=== PATIENT | female | born 1965 | race Caucasian/White ===

== ENCOUNTER → 2019-12-15 | Day surgery (SDC) | payer BC ==
[2019-12-15 07:33] VITALS: PULSE 84
--- NOTE | 2019-12-15 08:03 | P.GSHP ---
History of Present Illness H&P Date: 12/15/19 Chief Complaint: Abnormal right breast mammogram Belinda is a 54-year-old white female seen in consultation for Dr. Talavera and Dr. Hsu regarding the radiographic abnormality in the right breast. A routine screening mammogram performed on revealed indeterminate calcifications in the inferior posterior aspect of the right breast. The patient does not feel any lumps masses or nodules in either breast. She is not complaining of any nipple discharge for which she is concerned. She has not had any recent trauma or infection in the breast. caffiene: Several cans of diet Coke per day Nicotine: She does not smoke and is not exposed to secondhand smoke Theophylline: Minimal Family History: father: skin cancer, and prostate cancer patient: melanoma, right cheek, followed at [facility] Hormonal history: Menarche:16 G0 menopause: hysterectomy in mid 40S for bleeding, did not remove ovaries BCP: 12 years hormones: none Surgical history: 1. Hysterectomy 2. Bilateral knees torn cartilage 3. Tonsillectomy 4. Right cheek melanoma Medical history: diabetic HTN high cholesterol Overactive sweat glands Social history: Smoke: Negative Alcohol: Negative Drugs: Negative - Constitutional Constitutional: Reports sweats - EENT Comment: wears glasses Ears: bilateral: decreased hearing, tinnitus Ears, nose, mouth and throat: Denies headache, Denies sore throat - Breasts Breasts: bilateral: as per HPI - Cardiovascular Cardiovascular: Denies chest pain, Denies shortness of breath - Respiratory Respiratory: Denies cough, Denies 7 - Gastrointestinal Gastrointestinal: Denies abdominal pain, Denies diarrhea, Denies nausea, Denies vomiting - Genitourinary (Female) Genitourinary: Denies dysuria, Denies hematuria - Menstruation Menstruation: Reports post hysterectomy - Musculoskeletal Musculoskeletal: Denies myalgias - Integumentary Comment: melanoma right cheek - Neurological Neurological: Denies numbness, Denies weakness - Psychiatric Psychiatric: Reports depression - Endocrine Endocrine: Denies fatigue, Denies weight change - Hematologic/Lymphatic Comment: baby aspirin but stopped 1 week ago - Allergic/Immunologic Allergic/Immunologic: Reports seasonal allergies Past Medical History Past Medical History: Diabetes Mellitus, Hypertension Additional Past Medical History / Comment(s): melanoma face 2019 History of Any Multi-Drug Resistant Organisms: None Reported Past Surgical History: Hysterectomy, Orthopedic Surgery, Tonsillectomy Additional Past Surgical History / Comment(s): right knee 2017, left knee 1978, skin cancer face malanoma Additional Past Anesthesia/Blood Transfusion Reaction / Comment(s): trouble waking up Past Psychological History: Anxiety, Depression Smoking Status: Never smoker Past Alcohol Use History: None Reported Past Drug Use History: None Reported - Past Family History Mother Family Medical History: Hypertension Medications and Allergies Home Medications Medication Instructions Recorded Confirmed Type Lisinopril-Hctz 20-25 mg 1 tab PO DAILY 12/11/19 12/15/19 History [Zestoretic 20-25] Loratadine [Claritin] 10 mg PO DAILY 12/11/19 12/15/19 History Omeprazole [PriLOSEC] 1 tab PO DAILY 12/11/19 12/15/19 History Simvastatin [Zocor] 40 mg PO HS 12/11/19 12/15/19 History amLODIPine BES/OLMESARTAN MED 1 tab PO DAILY 12/11/19 12/15/19 History [amLODIPine BES/OLMESARTAN MED 5-20 mg] buPROPion XL [Wellbutrin XL] 1 tab PO DAILY 12/11/19 12/15/19 History glyBURIDE [Diabeta] 1 tab PO BID 12/11/19 12/15/19 History metFORMIN HCL 1,000 mg PO BID 12/11/19 12/15/19 History Allergies Allergy/AdvReac Type Severity Reaction Status Date / Time bacitracin Allergy Rash/Hives Verified 12/15/19 07:21 [From Neosporin ([id number])] latex Allergy Rash/Hives Verified 12/15/19 07:21 neomycin Allergy Rash/Hives Verified 12/15/19 07:21 [From Neosporin ([id number])] polymyxin B Allergy Rash/Hives Verified 12/15/19 07:21 [From Neosporin ([id number])] Tetanus Vaccines and Toxoid Allergy Unknown Verified 12/15/19 07:21 Penicillins AdvReac Rash/Hives Verified 12/15/19 07:21 Surgical - Exam Vital Signs Temp Pulse Resp BP 98.4 F 84 18 141/83 12/15/19 07:23 12/15/19 07:23 12/15/19 07:23 12/15/19 07:23 BMI 36.8 - General well developed - Eyes normal ocular movement - ENT no hearing loss, no congestion - Neck no masses, trachea midline - Respiratory normal respiratory effort, clear to auscultation - Cardiovascular Rhythm: regular Heart Sounds: normal: S1, S2 - Abdomen Abdomen: soft, bowel sounds - Integumentary normal turgor - Neurologic no disoriented, no combative - Musculoskeletal normal gait, normal posture - Psychiatric oriented to time, oriented to person, oriented to place, speech is normal, memory intact Breast exam: BRA: 42C inspection: bilateral grade 2/3 ptosis; mild fungal infection under right breast, right breast slightly larger than left breast Palpation: Right breast: Multi-positional exam fibrocystic changes, no dominant masses or nodules of concern Right axilla: No adenopathy of concern Left breast: Multi-positional exam fibrocystic changes, no dominant masses or nodules of concern Left axilla: No adenopathy of concern Results Mammogram reviewed Assessment and Plan Assessment: Impression: 1. Radiographic abnormality right breast 2. Mild asymmetry between the breast 3. Status post excision melanoma right cheek 4. Hypertension 5. Diabetes 6. High cholesterol Plan: 1. Stereotactic core biopsy right breast 2. Follow up after results of surgery tactic core biopsy This benefits of the procedure been discussed with the patient and her partner. They understand and she wishes to proceed. Risks include but are not limited to bleeding, infection, reaction to the anesthetic. The greatest risk in this case this seems to be that the lesion was very far posterior we may not be able to technically identify it on the stereo table. She understands and if this were to be the case that a needle localization and excisional biopsy in the operating room will be scheduled for the future. Cc: Dr. Daly, Dr. Camacho, Sr. Hsu encounter 30 minutes, > 50% of tiem in planning and counselling
--- NOTE | 2019-12-15 08:49 | P.OP ---
Date of Procedure: 12/15/19 Preoperative Diagnosis: Right breast microcalcifications of concern Postoperative Diagnosis: Same Procedure(s) Performed: Stereotactic core biopsy right breast Anesthesia: local Surgeon: Lesly Vazquez Estimated Blood Loss (ml): 0 Pathology: other (Right breast tissue) Condition: stable Disposition: same day Indications for Procedure: Microcalcifications of concern right breast Operative Findings: Radiographic of specimen reveals microcalcifications of concern Description of Procedure: The patient is a 54-year-old white female who underwent a routine screening mammogram was noted in the inferior, mid aspect of the right breast to have an area of heterogeneous calcifications of concern. It was recommended she undergo a stereotactic core biopsy. Risk and benefits of the procedure were discussed with the patient and her partner and they wish to proceed. The patient was taken to the stereotactic core biopsy room and positioned on the lobe. Table. A md pediatric allergist film was obtained. The area of calcification was letty ntified. Stereo pair was performed and the lesion was targeted. The breast was prepped using Betadine. 20 mL of 1% lidocaine was used to anesthetize the area of concern. A 9-gauge vacuum-assisted core rotating biopsy needle was driven to the correct coordinates. The needle was fired. A post-fire film revealed the needle was in the correct location. 12 core samples were obtained. Radiograph of the specimen revealed the calcifications of concern had been sampled. A secure marked top hat clip was left. The patient tolerated the procedure in stable condition. The specimen was sent to pathology.
[2019-12-15 09:04] VITALS: BP 123/79; RESP 16; TEMP 98.2
--- NOTE | 2019-12-15 09:37 | MM ---
EXAMINATION TYPE: MG stereo VAD BX RT DATE OF EXAM: 12/15/2019 COMPARISON: Prior outside mammogram 8 days ago and 11 days ago. CLINICAL HISTORY: Abnormal group of microcalcifications. TECHNIQUE: Stereotactic guided core biopsy of right breast. FINDINGS: The procedure of stereotactic guided core biopsy was explained to the patient. Benefits, alternatives, and risks were discussed. An informed consent was then obtained. The shortness pathway for biopsy was chosen. Shortness pathway was inferior approach. I performed the localization, then surgeon, Dr. Zay Christy performed the remainder of the procedure. A vacuum assisted biopsy gun was used to obtain multiple core samples. The patient tolerated the procedure well without any immediate complication. The patient was kept in the radiology department for short stay after the procedure and then discharged home in stable condition. Targeted calcifications are identified in specimen mammogram. Post biopsy mammogram shows the clip to appear in satisfactory position relative to the targeted area of concern on the preprocedure images. IMPRESSION: SUCCESSFUL, UNCOMPLICATED STEREOTACTIC GUIDED CORE BIOPSY OF AREA OF CONCERN IN THE RIGHT BREAST, FULL PATHOLOGY RESULTS TO FOLLOW. Intermediate index of suspicion noted at time of procedure. Pathology Results: Benign RIGHT BREAST, STEREOTACTIC CORE BIOPSY: Fibroadenomatoid hyperplasia with calcifications in a background of fibrocystic changes. Recommendation Follow up mammogram of the right breast in 6 months. MTDD
== END ==
LOC: RADMAMWWP 06:53
PROVIDERS: ATTEND Surgery
DX: N60.11 Diffuse cystic mastopathy of right breast (principal); N60.89 Other benign mammary dysplasias of unspecified breast; I10 Essential (primary) hypertension; E11.9 Type 2 diabetes mellitus without complications; Z97.3 Presence of spectacles and contact lenses; F41.9 Anxiety disorder, unspecified; F32.9 Major depressive disorder, single episode, unspecified; Z91.040 Latex allergy status; Z88.0 Allergy status to penicillin; Z88.1 Allergy status to other antibiotic agents; Z79.84 Long term (current) use of oral hypoglycemic drugs; Z79.899 Other long term (current) drug therapy; Z88.7 Allergy status to serum and vaccine; Z90.710 Acquired absence of both cervix and uterus; Z98.890 Other specified postprocedural states; Z85.820 Personal history of malignant melanoma of skin; Z80.42 Family history of malignant neoplasm of prostate; Z80.8 Family history of malignant neoplasm of other organs or systems; Z82.49 Family history of ischemic heart disease and other diseases of the circulatory system
CPT/HCPCS: 88305; 19081; A4648; J2001

== ENCOUNTER → 2019-12-22 | Outpatient (CLI) | payer BC ==
[2019-12-22 16:44] VITALS: BP 122/84; PULSE 87; RESP 16; TEMP 98.2
--- NOTE | 2019-12-22 16:45 | P.PN ---
Subjective Progress Note Date: 12/22/19 Principal diagnosis: Stereotactic biopsy results Lesly is status post a stero biopsy on 12-15-19. Pathology revealed fibroadenomatoid hyperplasia with calcifications in a background of fibrocystic changes. This is felt to be benign and concordant. The patient states she did have some discomfort during the procedure and has some ecchymosis post procedure. She is doing well at this time. Objective - EENT Eyes: Present: EOMI ENT: Present: hearing grossly normal - Neck Neck: Present: normal ROM - Respiratory Respiratory: bilateral: CTA - Cardiovascular Rhythm: regular Heart sounds: normal: S1, S2 - Integumentary Integumentary Comment(s): Achymosis at biopsy site, no evidence of infection and no evidence of any hematoma Integumentary: Present: normal turgor - Musculoskeletal Musculoskeletal: Present: gait normal - Psychiatric Psychiatric: Present: A&O x's 3, appropriate affect Assessment and Plan Assessment: Impression: 1. status post right breast stero biopsy/ pathology benign Plan: 1. Breast mammogram in 6 months with physician exam at that time CC: Dr. Daly encounter 5 minutes, > 50% of time on planning and counselling
--- NOTE | 2020-01-02 15:37 | P.PN ---
Progress Note - Text Progress Note Date: 01/02/20 Belinda is a 54-year-old white female status post stereotactic core biopsy of the right breast on . Pathology was benign. She was seen in and noted to be doing well. She called on stating that she noted some nodularity near the area of her biopsy site and it was mildly tender. She was called on . She has not had any fever or chills. She states the swelling has decreased in size. She was instructed to call and come and see us if she has any questions or concerns. It sounds as though she may have a small hematoma at the site which is resolving.
== END | disposition home or self-care (01) ==
LOC: WWCWWP 16:02
PROVIDERS: ATTEND Surgery
DX: Z53.9 Procedure and treatment not carried out, unspecified reason (principal)

== ENCOUNTER → 2020-06-17 | Outpatient (CLI) | payer BC ==
--- NOTE | 2020-06-17 11:09 | MM ---
Reason for exam: follow-up at short interval from prior study. Last mammogram was performed 6 months ago. History: Patient history of other cancer. Benign MG stereo VAD BX RT of the right breast, December 15, 2019. Physical Findings: Nurse did not find any significant physical abnormalities on exam. MG 3D Diag Mammo W/Cad RT CC and MLO view(s) were taken of the right breast. Prior study comparison: December 15, 2019, mammogram. December 04, 2019, mammogram. There are scattered fibroglandular densities. There are benign appearing round dystrophic calcifications in the right breast. Previous mammotome biopsy in the right breast. There is no discrete abnormality. These results were verbally communicated with the patient and result sheet given to the patient on 06/17/20. ASSESSMENT: Benign, BI-RAD 2 RECOMMENDATION: Routine screening mammogram of both breasts in 6 months. Back on schedule for December 2020.
== END ==
LOC: RADMAMWWP 10:18
PROVIDERS: ATTEND Surgery
DX: R92.8 Other abnormal and inconclusive findings on diagnostic imaging of breast (principal)
CPT/HCPCS: 77061; 77065

== ENCOUNTER → 2020-06-21 | Outpatient (CLI) | payer BC ==
[2020-06-21 09:52] VITALS: BP 132/84; PULSE 90; RESP 18; TEMP 98.3
--- NOTE | 2020-06-21 10:01 | P.PN ---
Subjective Progress Note Date: 06/21/20 Principal diagnosis: Fibrocystic breast changes Belinda is a 54-year-old white female seen in consultation for Dr. Daly and Dr. Hsu regarding a radiographic abnormality in the right breast. A routine screening mammogram performed on 928 revealed indeterminate calci fications in the inferior posterior aspect of the right breast. The patient did not feel any lumps masses or nodules in either breast. She did not complain of any nipple discharge for which she was concerned. She has not had any recent trauma or infection in the breast. [place] [address]. This revealed fibroadenomatoid hyperplasia with calcifications. She does not have any lumps masses or nodules in her breasts for which she is concerned. She does have some intermittent aching at the site of the stereotactic core biopsy. [place] [address]. This was benign BIRADS 2. caffiene: Several cans of diet Coke per day Nicotine: She does not smoke and is not exposed to secondhand smoke Theophylline: Minimal Family History: father: skin cancer, and prostate cancer patient: melanoma, right cheek, followed at [facility] Hormonal history: Menarche:16 G0 menopause: hysterectomy in mid 40S for bleeding, did not remove ovaries BCP: 12 years hormones: none Surgical history: 1. Hysterectomy 2. Bilateral knees torn cartilage 3. Tonsillectomy 4. Right cheek melanoma Medical history: diabetic HTN high cholesterol Overactive sweat glands Social history: Smoke: Negative Alcohol: Negative Drugs: Negative - Constitutional Constitutional: Reports sweats - EENT Comment: wears glasses Ears: bilateral: decreased hearing, tinnitus Ears, nose, mouth and throat: Denies headache, Denies sore throat - Breasts Breasts: bilateral: as per HPI - Cardiovascular Cardiovascular: Denies chest pain, Denies shortness of breath - Respiratory Respiratory: Denies cough - Gastrointestinal Gastrointestinal: Denies abdominal pain, Denies diarrhea, Denies nausea, Denies vomiting - Genitourinary (Female) Genitourinary: Denies dysuria, Denies hematuria - Menstruation Menstruation: Reports post hysterectomy - Musculoskeletal Musculoskeletal: Denies myalgias - Integumentary Comment: melanoma right cheek - Neurological Neurological: Denies numbness, Denies weakness - Psychiatric Psychiatric: Reports depression - Endocrine Endocrine: Denies fatigue, Denies weight change - Hematologic/Lymphatic Comment: baby aspirin but stopped 1 week ago - Allergic/Immunologic Allergic/Immunologic: Reports seasonal allergies Past Medical History Past Medical History: Diabetes Mellitus, Hypertension Additional Past Medical History / Comment(s): melanoma face 2019 History of Any Multi-Drug Resistant Organisms: None Reported Past Surgical History: Hysterectomy, Orthopedic Surgery, Tonsillectomy Additional Past Surgical History / Comment(s): right knee 2017, left knee 1978, skin cancer face malanoma Additional Past Anesthesia/Blood Transfusion Reaction / Comment(s): trouble waking up Past Psychological History: Anxiety, Depression Smoking Status: Never smoker Past Alcohol Use History: None Reported Past Drug Use History: None Reported Objective - Vital Signs Vital signs: Vital Signs Temp 98.3 F 06/21/20 09:49 Pulse 90 06/21/20 09:49 Resp 18 06/21/20 09:49 BP 132/84 06/21/20 09:49 Pulse Ox 99 06/21/20 09:49 Intake & Output 06/20/20 06/21/20 06/21/20 18:59 06:59 18:59 Weight 107.955 kg - Exam BMI 38.4 - Constitutional General appearance: Present: cooperative - EENT Eyes: Present: EOMI ENT: Present: hearing grossly normal - Neck Neck: Present: normal ROM - Respiratory Respiratory: bilateral: CTA - Cardiovascular Rhythm: regular Heart sounds: normal: S1, S2 - Integumentary Integumentary: Present: normal turgor - Musculoskeletal Musculoskeletal: Present: gait normal - Psychiatric Psychiatric: Present: A&O x's 3, appropriate affect, intact judgment & insight - Additional findings Additional findings: Breast exam: BRA: 44C inspection: bilateral grade 3 ptosis Palpation: Right breast: Multi-positional exam fibrocystic changes, no dominant masses or nodules of concern Right axilla: No adenopathy of concern Left breast: Multi-positional exam fibrocystic changes no dominant mass or nodules of concern Left axilla: No adenopathy of concern Right breast slightly larger than left breast Assessment and Plan Assessment: Impression: diabetic HTN high cholesterol Overactive sweat glands Fibrocystic breast changes Recent right breast mammogram benign BIRADS 2 Plan: 1. Repeat bilateral mammogram in 6 months with physician exam at that time Cc: Dr. Hsu
== END ==
LOC: WWCWWP 09:37
PROVIDERS: ATTEND Surgery
DX: N60.11 Diffuse cystic mastopathy of right breast (principal); N60.12 Diffuse cystic mastopathy of left breast; E11.9 Type 2 diabetes mellitus without complications; I10 Essential (primary) hypertension; E78.00 Pure hypercholesterolemia, unspecified; F32.9 Major depressive disorder, single episode, unspecified; F41.9 Anxiety disorder, unspecified

== ENCOUNTER → 2020-12-06 | Outpatient (CLI) | payer BC ==
--- NOTE | 2020-12-09 11:55 | MM ---
Reason for exam: screening (asymptomatic). Last mammogram was performed 6 months ago. History: Patient has history of other cancer at age 53. Benign MG stereo VAD BX RT of the right breast, December 15, 2019. Physical Findings: A clinical breast exam by your physician is recommended on an annual basis and results should be correlated with mammographic findings. MG 3D Screening Mammo W/Cad Bilateral CC and MLO view(s) were taken. Prior study comparison: June 17, 2020, right breast MG 3d diag mammo w/cad RT. December 04, 2019, mammogram. There are scattered fibroglandular densities. There are benign appearing round calcifications. There is no discrete abnormality. ASSESSMENT: Benign, BI-RAD 2 RECOMMENDATION: Routine screening mammogram of both breasts in 1 year.
== END | disposition home or self-care (01) ==
LOC: RADMAMWWP 10:23
PROVIDERS: ATTEND Surgery
DX: Z12.31 Encounter for screening mammogram for malignant neoplasm of breast (principal)
CPT/HCPCS: 77063; 77067

== ENCOUNTER → 2020-12-13 | Outpatient (CLI) | payer BC ==
[2020-12-13 11:53] VITALS: BP 130/77; PULSE 78; RESP 12; TEMP 98.2
--- NOTE | 2020-12-13 12:06 | P.PN ---
Subjective Progress Note Date: 12/13/20 Principal diagnosis: fibrocystic breast disease Belinda is a 55-year-old white female seen in consultation for Dr. Daly and Dr. Hsu on 06-21-20 regarding a radiographic abnormality in the right breast. A routine screening mammogram performed on [id number] 25 revealed indeterminate calcifications in the inferior posterior aspect of the right breast. The patient did not feel any lumps masses or nodules in either breast. She did not complain of any nipple discharge for which she was concerned. She had not had any recent trauma or infection in the breast. [place] [address]. This revealed fibroadenomatoid hyperplasia with calcifications. She had a right breast mammogram performed on . This was benign BIRADS 2. She had a bilateral mammogram on 12-06-20. This was BENIGN BIRAD 2. She states she does have some intermittent discomfort in her right breast. With a stereotactic core biopsy was performed. She does not feel any discrete lumps masses or nodules of concern in either breast. caffiene: 1 1/2 cans of diet Coke per day Nicotine: She does not smoke and is not exposed to secondhand smoke Theophylline: Minimal Family History: father: skin cancer, and prostate cancer patient: melanoma, right cheek, followed at [facility] Hormonal history: Menarche:16 G0 menopause: hysterectomy in mid 40S for bleeding, did not remove ovaries BCP: 12 years hormones: none Surgical history: 1. Hysterectomy 2. Bilateral knees torn cartilage 3. Tonsillectomy 4. Right cheek melanoma Medical history: diabetic HTN high cholesterol Overactive sweat glands Social history: Smoke: Negative Alcohol: Negative Drugs: Negative - Constitutional Constitutional: Reports sweats - EENT Comment: wears glasses Ears: bilateral: decreased hearing, tinnitus Ears, nose, mouth and throat: Denies headache, Denies sore throat - Breasts Breasts: bilateral: as per HPI - Cardiovascular Cardiovascular: Denies chest pain, Denies shortness of breath - Respiratory Respiratory: Denies cough - Gastrointestinal Gastrointestinal: Denies abdominal pain, Denies diarrhea, Denies nausea, Denies vomiting - Genitourinary (Female) Genitourinary: Denies dysuria, Denies hematuria - Menstruation Menstruation: Reports post hysterectomy - Musculoskeletal Musculoskeletal: Denies myalgias - Integumentary Comment: melanoma right cheek - Neurological Neurological: Denies numbness, Denies weakness - Psychiatric Psychiatric: Reports depression - Endocrine Endocrine: Denies fatigue, Denies weight change - Hematologic/Lymphatic Comment: baby aspirin but stopped 1 week ago - Allergic/Immunologic Allergic/Immunologic: Reports seasonal allergies Objective - Vital Signs Vital signs: Vital Signs Temp 98.2 F 12/13/20 11:38 Pulse 78 12/13/20 11:38 Resp 12 12/13/20 11:38 BP 130/77 12/13/20 11:38 Pulse Ox 97 12/13/20 11:38 Intake & Output 12/12/20 12/13/20 12/13/20 18:59 06:59 18:59 Weight 104.326 kg - Exam BMI 37.1 - Constitutional General appearance: Present: cooperative - EENT Eyes: Present: EOMI ENT: Present: hearing grossly normal - Neck Neck: Present: normal ROM - Respiratory Respiratory: bilateral: CTA - Cardiovascular Rhythm: regular Heart sounds: normal: S1, S2 - Integumentary Integumentary: Present: normal turgor - Musculoskeletal Musculoskeletal: Present: gait normal - Psychiatric Psychiatric: Present: A&O x's 3, appropriate affect, intact judgment & insight - Additional findings Additional findings: Breast Exam: BRA: 42C inspection: Right breast slightly larger than left breast, grade 2/3 ptosis bilaterally Palpation: Right breast: Multi-positional exam fibrocystic changes, dominant masses or nodules of concern Right axilla: No adenopathy of concern Left breast: Multi-positional exam fibrocystic changes, no dominant masses or nodules of concern Left axilla: No adenopathy of concern fungal infection under each breast Assessment and Plan Assessment: Impression: 1. Bilateral fibrocystic breast changes 2. Fungal infection under both breasts 3. No lesions of concern radiographically on examination in either breast which would warrant biopsy Plan: 1. Nystatin cream under breast area fungal infection 2. Repeat bilateral mammogram 1 year with physician exam at that time Cc: Dr. Malika Dr, Priebe
== END ==
LOC: WWCWWP 11:38
PROVIDERS: ATTEND Surgery
DX: N60.11 Diffuse cystic mastopathy of right breast (principal); N60.12 Diffuse cystic mastopathy of left breast; B36.8 Other specified superficial mycoses; E11.9 Type 2 diabetes mellitus without complications; E78.00 Pure hypercholesterolemia, unspecified; I10 Essential (primary) hypertension; Z91.040 Latex allergy status; Z88.0 Allergy status to penicillin; Z88.7 Allergy status to serum and vaccine; Z88.1 Allergy status to other antibiotic agents

== ENCOUNTER → 2021-12-08 | Outpatient (CLI) | payer BC ==
--- NOTE | 2021-12-09 08:14 | MM ---
Reason for Exam: Screening (asymptomatic). Last screening mammogram was performed 12 month(s) ago. Patient History: Menarche at age 15. Hysterectomy at age 39. Postmenopausal. Other cancer, age 53. 12/15/2019, Benign Core Biopsy on the right side. Risk Values: Elizabeth 5 year model risk: 1.0%. NCI Lifetime model risk: 6.2%. Prior Study Comparison: 12/15/2019 Screening Mammogram, Unknown. 06/17/2020 Right Diagnostic Mammogram, [facility]. 12/06/2020 Bilateral Screening Mammogram, [facility]. Tissue Density: There are scattered fibroglandular densities. Findings: Analyzed By CAD. There is no suspicious group of microcalcifications or new suspicious mass in either breast. Benign-appearing round calcifications. No significant change in prior examinations. Overall Assessment: Benign, BI-RAD 2 Management: Screening Mammogram of both breasts in 1 year. A clinical breast exam by your physician is recommended on an annual basis and results should be correlated with mammographic findings. Electronically signed and approved by: Bull Ervin D.O.
== END | disposition home or self-care (01) ==
LOC: RADMAMWWP 15:15
PROVIDERS: ATTEND Obstetrics & Gynecology
DX: Z12.31 Encounter for screening mammogram for malignant neoplasm of breast (principal); Z78.0 Asymptomatic menopausal state
CPT/HCPCS: 77063; 77067

== ENCOUNTER → 2022-12-17 | Outpatient (CLI) | payer OTHER ==
--- NOTE | 2022-12-18 11:26 | MM ---
Reason for Exam: Screening (asymptomatic). Last screening mammogram was performed 12 month(s) ago. Patient History: Menarche at age 15. Hysterectomy at age 39. Postmenopausal. Other cancer, age 53. 12/15/2019, Benign Core Biopsy on the right side. Risk Values: Elizabeth 5 year model risk: 1.0%. NCI Lifetime model risk: 6.0%. Prior Study Comparison: 06/17/2020 Right Diagnostic Mammogram, [facility]. 12/06/2020 Bilateral Screening Mammogram, [facility]. 12/08/2021 Bilateral MG 3D screening mammo w/cad, [facility]. Tissue Density: There are scattered fibroglandular densities. Findings: Analyzed By CAD. There is no suspicious group of microcalcifications or new suspicious mass in either breast. Overall Assessment: Negative, BI-RAD 1 Management: Screening Mammogram of both breasts in 1 year. . Patient should continue monthly self-breast exams. A clinical breast exam by your physician is recommended on an annual basis. This exam should not preclude additional follow-up of suspicious palpable abnormalities. Note on Elizabeth scores and lifetime risk: 1. A Elizabeth score greater than 3% is considered moderate risk. If this is the case, consider specialist referral to assess eligibility for a risk reducing agent. 2. If overall lifetime risk for the development of breast cancer is 20% or higher, the patient may qualify for future screening with alternating mammogram and breast MRI. Electronically signed and approved by: Jesus Alberto Branham M.D. Radiologis
== END | disposition home or self-care (01) ==
LOC: RADMAMWWP 12:55
PROVIDERS: ATTEND Family Medicine
DX: Z12.31 Encounter for screening mammogram for malignant neoplasm of breast (principal); Z78.0 Asymptomatic menopausal state
CPT/HCPCS: 77063; 77067

== ENCOUNTER → 2024-01-13 | Outpatient (CLI) | payer OTHER ==
--- NOTE | 2024-01-20 12:20 | MM ---
Reason for Exam: Screening (asymptomatic). Last mammogram was performed 1 year(s) and 1 month(s) ago. Patient History: Menarche at age 15. Patient has no children. Hysterectomy at age 39. Postmenopausal. Other cancer, age 53. 12/15/2019, Benign Core Biopsy on the right side. Risk Values: Elizabeth 5 year model risk: 1.7%. NCI Lifetime model risk: 8.9%. Prior Study Comparison: 12/06/2020 Bilateral Screening Mammogram, [facility]. 12/08/2021 Bilateral MG 3D screening mammo w/cad, [facility]. 12/17/2022 Bilateral MG 3D screening mammo w/cad, [facility]. Tissue Density: The breasts are almost entirely fatty. Findings: Analyzed By CAD. Right breast: There is no suspicious group of microcalcifications or new suspicious mass. Left breast: There is no suspicious group of microcalcifications or new suspicious mass. Overall Assessment: Negative, BI-RAD 1 Management: Screening Mammogram of both breasts in [address] [facility] will attempt to contact patient to return for supplemental views and ultrasound if indicated. Patient should continue monthly self-breast exams. A clinical breast exam by your physician is recommended on an annual basis. This exam should not preclude additional follow-up of suspicious palpable abnormalities. Note on Elizabeth scores and lifetime risk: 1. A Elizabeth score greater than 3% is considered moderate risk. If this is the case, consider specialist referral to assess eligibility for a risk reducing agent. 2. If overall lifetime risk for the development of breast cancer is 20% or higher, the patient may qualify for future screening with alternating mammogram and breast MRI. [facility], , 01/20/2024 12:16 PM. Electronically signed and approved by: Caden Sawyer DO
== END | disposition home or self-care (01) ==
LOC: RADMAMWWP 08:45
PROVIDERS: ATTEND Family Medicine
DX: Z12.31 Encounter for screening mammogram for malignant neoplasm of breast (principal); Z78.0 Asymptomatic menopausal state
CPT/HCPCS: 77063; 77067